=== PATIENT | female | born 1995 | race African-American/Black ===

== ENCOUNTER 2021-02-22 00:40 | Emergency (ER) | payer SELFPAY ==
--- NOTE | ~2021-02-22 | XR_ITS ---
XR chest 2V DATE: 02/22/2021 06:39 INDICATION: Chest pain TECHNIQUE: PA and lateral views COMPARISON: None FINDINGS: Normal heart size. No hilar or mediastinal enlargement. No pulmonary infiltrate or consolid ation, pleural effusion or pulmonary vascular congestion or pneumothorax. There is mild elevation of the right leaf of the diaphragm. Included skeletal structures are unremarkable. IMPRESSION: No active cardiopulmonary disease Reviewed, dictated and finalized at location A.
--- NOTE | 2021-02-22 00:44 | ECG_ITS ---
Measurements Intervals [place] Rate: 64 P: 43 [place]: 184 QRS: 6 QRSD: 102 T: 16 QT: 380 QTc: 395 Interpretive Statements SINUS RHYTHM DELAYED PRECORDIAL R/S TRANSITION MINIMAL Q WAVES- HIGH LATERAL LEADS BORDERLINE ECG Electronically Signed On 02-22-2021 6:02:36 CDT by Javier Floyd D.O.
[2021-02-22 00:54] VITALS: BP 142/92; PULSE 67; RESP 16; TEMP 36.6; O2SAT 100
[2021-02-22 06:12] VITALS: BP 138/87; PULSE 60; RESP 15; TEMP 36.5; O2SAT 100
[2021-02-22] MEDS: IBUPROFEN 600 MG TABLET PO (06:23)
[2021-02-22] MEDS: LORazepam (*CRX) 0.5 MG TABLET PO (06:24)
--- NOTE | 2021-02-22 07:10 | PC.NURSE ---
report from ken davalos. care assumed at this time.
[2021-02-22 07:12] VITALS: BP 138/87; PULSE 65; RESP 16; O2SAT 100
[2021-02-22 07:26] LABS: Basophils Absolute Auto 0.1 K/mm3 (0.0-0.1); Basophils Percent Auto 1.1 % (0.2-1.2); Eosinophils Absolute Auto 0.1 K/mm3 (0-0.3); Eosinophils Percent Auto 1.5 % (0-4.4); Hematocrit 39.5 % (37.0-47.0); Hemoglobin 12.6 g/dL (12.0-15.0); Immature Granulocyte Absolute 0.01 K/mm3 (0.00-0.031); Immature Granulocyte Percent A 0.2 % (0-0.5); Lymphocytes Absolute Auto 3.34 K/mm3 (0.9-3.2); Lymphocytes Percent Auto 54.3 % (18.3-44.2); Mean Corpuscular HGB Conc 31.9 g/dl (32-36); Mean Corpuscular Hemoglobin 28.3 pg (26-34); Mean Corpuscular Volume 88.6 fl (80-100); Monocytes Absolute Auto 0.6 K/mm3 (0.1-0.6); Monocytes Percent Auto 8.9 % (2.6-8.5); Neutrophils Absolute Auto 2.1 K/mm3 (1.3-6.7); Platelet Count Result 321 k/mm3 (150-375); Red Blood Count 4.46 M/mm3 (4.2-5.4); Red Cell Distribution Width 12.3 % (11.5-14.5); White Blood Count 6.2 K/mm3 (4.5-10.0)
[2021-02-22 07:35] LABS: Alanine Aminotransferase 37 U/L (4-35); Albumin Level 4.3 g/dL (3.5-5.1); Alkaline Phosphatase 79 U/L (38-126); Anion Gap 9 mmol/L (8-16); Aspartate Amino Transferase 37 U/L (14-36); Bilirubin,Total 0.2 mg/dL (0.2-1.3); Blood Urea Nitrogen 10 mg/dL (7-17); Calcium 9.6 mg/dL (8.4-10.2); Carbon Dioxide 27 mmol/L (22-30); Chloride 101 mmol/L (98-107); Estimated Glomerular Filt Rate > 60; Glucose 126 mg/dL (65-110); Potassium 3.8 mmol/L (3.4-5.0); Sodium 137 mmol/L (137-145)
--- NOTE | 2021-02-22 07:36 | ED.ANXIETY ---
HPI - Anxiety General Chief Complaint: Anxiety Stated Complaint: Anxiety/ chest pressure Time Seen by Provider: 02/22/21 05:51 Source: patient Mode of arrival: ambulatory Limitations: no limitations History of Present Illness HPI narrative: This is a 25 year old female who presents for evaluation of midsternal chest pain. Patient states she was laying in bed last night and she developed midsternal chest pressure. She states this started at 11 pm and it has remained constant. She thinks it may be due to anxiety but she wants it to get checked. She reports having similar chest pain in the past but it has never lasted this long. Her pain is nonradiating. She denies associated shortness of breath, fever, cough, nausea, vomiting , heart racing or palpitations. She has not taken anything for her pain. She does note that she has been taking phentermine for weightloss until 2 days. She stopped 2 days ago in order to take a breath. She denies history of DVT, leg swelling or calf pain. She denies taking OCP. Related Data Allergies Allergy/AdvReac Type Severity Reaction Status Date / Time No Known Allergies Allergy Verified 02/22/21 06:17 Review of Systems Review of Systems: All systems reviewed & are unremarkable except as noted in HPI and below PMFSH Past Medical History Medical History (Updated 02/23/21 @ 00:00 by Mikel Boyd) Patient denies medical problems Surgical History Surgical History (Updated 02/22/21 @ 07:40 by Bertha Clements MD) No pertinent past surgical history Social History Social History (Updated 02/22/21 @ 07:40 by Bertha Clements MD) Smoking status: Never smoker Substance use type: does not use Exam Const: General: no acute distress and alert Nutritional Appearance: obese Orientation/consciousness: patient oriented x3 Eyes: EOM: EOMs intact bilaterally Chest: Chest palpation & inspection: normal inspection of the chest Resp: Effort & Inspection: normal respiratory effort and no retractions Auscultation: clear to auscultation bilaterally Cardio: Rate: regular rate Rhythm: regular rhythm Heart sounds: no murmurs GI: GI Palp: Yes Soft to palpation, No Tenderness to palpation present (GI) and No Guarding due to palpation present (GI) Auscultation: normal bowel sounds Skin: General skin exam: normal color Rashes: no rashes Neuro: General: patient oriented x3, moves all extremities and CN's II-XI intact bilaterally Extrem: General: normal to inspection Psych: Mental Status: mental status grossly normal Affect: normal affect Course Reevaluation(s) Reevaluation #1: I discussed case with DR. Vigil who accepts care. PAtient is still pending labs. She is PERC negative. Date: 02/22/21 Time: 07:20 Vital Signs Vital signs: Vital Signs Temperature 97.9 F 02/22/21 00:54 Pulse Rate 67 02/22/21 00:54 Respiratory Rate 16 02/22/21 00:54 Blood Pressure 142/92 H 02/22/21 00:54 Pulse Oximetry 100 02/22/21 00:54 Temperature 97.7 F 02/22/21 06:12 Pulse Rate 65 02/22/21 07:12 Respiratory Rate 16 02/22/21 07:12 Blood Pressure 138/87 02/22/21 07:12 Pulse Oximetry 100 02/22/21 07:12 MDM - Anxiety Lab Data Attestation: I reviewed the patient's lab results. Result diagrams: 02/22/21 06:58 02/22/21 06:58 Labs: Lab Results 02/22/21 02/22/21 Range/Units 06:58 06:58 WBC 6.2 (4.5-10.0) K/mm3 RBC 4.46 (4.2-5.4) M/mm3 Hgb 12.6 (12.0-15.0) g/dL Hct 39.5 (37.0-47.0) % MCV 88.6 (80-100) fl MCH 28.3 (26-34) pg MCHC 31.9 L (32-36) g/dl RDW 12.3 (11.5-14.5) % Plt Count 321 (150-375) k/mm3 MPV 10.0 (7.4-10.4) fl Immature Gran % (Auto) 0.2 (0-0.5) % Neut % (Auto) 34.0 L (45.5-73.1) % Lymph % (Auto) 54.3 H (18.3-44.2) % Brooks % (Auto) 8.9 H (2.6-8.5) % Eos % (Auto) 1.5 (0-4.4) % Baso % (Auto) 1.1 (0.2-1.2) % Lymph # (Auto) 3.34 H
[2021-02-22 07:45] LABS: Troponin I < 0.012 ng/mL (0.000-0.034)
--- NOTE | 2021-02-22 07:54 | PC.NURSE ---
pt fully dressed, walking out of room. This RN had to try x 4 to get pt to turn around and make eye contact. Pt amb with steady gait stating this is ridiculous. I need to go to work . pt talking on cell phone while RN trying to inform pt that her results weren't back yet. pt insistent to leave without getting results asking if she can see them on the portal . pt signed AMA paperwork.
== END 2021-02-22 07:58 | disposition left against medical advice (07) ==
PROVIDERS: General Practice; Emergency Provider Emergency Medicine
DX: R07.89 Other chest pain (principal)
CPT/HCPCS: 36415; 71046; 80053; 84484; 85025; 93005; 99284; A9270